=== PATIENT | male | born 1975 | race Caucasian/White ===

== ENCOUNTER → 2016-11-07 | Day surgery (SDC) | payer OTHER ==
[2016-11-06 11:09] VITALS: BMI 24.7
[~2016-11-07] MED LIST: ACETAMINOPHEN 325 MG TABLET (FP) PO PRN; BUPIVACAINE HCL/PF 0.5% (5MG/ML) 10 ML VIAL IJ ONE; LACTATED RINGERS SOLUTION 1,000 ML IV SCH; ONDANSETRON 4 MG/2 ML VIAL IVPUSH PRN; oxyCODONE HCL 5 MG TABLET PO PRN
--- NOTE | 2016-11-07 15:40 | OP ---
Operative Note - Note: Operative Date: 11/07/16 Pre-Operative Diagnosis: ESRD on HD Operation: Laparoscopy, placement peritoneal dialysis catheter Findings: No intra-abdominal adhesions Post-Operative Diagnosis: Same as Pre-op Surgeon: Cullen Pickard Anesthesiologist/HANDS PARTER: Jyothi Cardoza Anesthesia: General
[2016-11-07 15:47] VITALS: TEMP 97.8
[2016-11-07 19:27] VITALS: BP 153/80; PULSE 88
--- NOTE | 2016-11-08 11:34 | OP ---
DATE OF OPERATION: 11/07/2016 SURGEON: Cullen Ruth MD PROCEDURE: Laparoscopic placement of peritoneal dialysis catheter. PREOPERATIVE DIAGNOSIS: End-stage renal disease. POSTOPERATIVE DIAGNOSIS: End-stage renal disease. ANESTHESIA: General. ANESTHESIOLOGIST: Jyothi Cardoza MD OPERATIVE FINDINGS: There was no evidence of abnormal adhesions within the peritoneal cavity. OPERATIVE PROCEDURE: Following routine patient identification, general anesthesia was induced. The abdomen was prepped with ChloraPrep. Marcaine 0.5% was infiltrated in the midline above the umbilicus, and a small skin incision was made. A 5-mm Visiport was then inserted under direct visualization into the peritoneal cavity. Pneumoperitoneum was established, carbon dioxide to 15 mmHg pressure. A 5-mm angled laparoscope was used to explore the abdomen. An incision was then made to the left of the umbilicus, and an 8-mm bladeless trocar advanced down to just above the peritoneum, and then directed inferiorly towards the pubis. The trocar entered the peritoneal cavity above the true pelvis. The double-cuff swan-neck, curled catheter was then straightened with a wire and advanced into the peritoneal cavity through the trocar. The trocar was removed, and the inner cuff was left just above the fascia. The other end of the catheter was attached to a curved tunneler, which was passed in the subcutaneous plane to exit on the right lower quadrant abdominal wall at the predetermined site. The external cuff was positioned in the subcutaneous tissues. The Luer-Wandy adapter was then attached to the tubing, and after evacuating pneumoperitoneum, 1 L of saline was allowed to run into the peritoneal cavity. This took approximately 3 minutes. The IV bag was dropped to the floor and approximately 500 mL drained without a problem. Ports were removed. The incisions were closed with interrupted suture of 3-0 Vicryl in subcutaneous tissues, and running subcuticular suture of 4-0 Biosyn on the skin. Dermabond glue was applied as a dressing. The catheter was dressed with a Bioclusive dressing and combine. The patient was then taken to the recovery room in stable condition. CULLEN RUTH M.D. [id number]
== END | disposition home or self-care (01) ==
LOC: JASU-SURG 11:27
PROVIDERS: ATTEND Surgery
PROC: 0WHG4YZ Insertion of Other Device into Peritoneal Cavity, Percutaneous Endoscopic Approach (ICD-10-PCS; principal; 2016-11-07 13:30)
DX: N18.6 End stage renal disease (principal)
CPT/HCPCS: 36415; 84132; 94760